=== PATIENT | male | born 1950 | race Caucasian/White ===

== ENCOUNTER → 2022-12-05 | Outpatient (CLI) | payer MEDICARE, OTHER ==
[~2022-12-05] MED LIST: ACHD5005 PO; ASP81CT PO; CLC500CT PO; DCS100C PO; FURO40TA4 PO; KCL20TCR PO; LISI-594 PO; METO25TA2 PO; ROSU10TA12 PO; TRM50T PO
== END ==
LOC: CARD 12:46
PROVIDERS: ATTEND Internal Medicine Cardiovascular Disease
DX: I25.10 Atherosclerotic heart disease of native coronary artery without angina pectoris (principal)
CPT/HCPCS: 93306

== ENCOUNTER → 2023-01-02 | Outpatient (CLI) | payer MEDICARE, OTHER ==
[~2023-01-02] MED LIST changes: +CATHETER FLUSH 10 ML SYR IVP PRN; +REGADENOSON 0.4 MG/5 ML SYR (LEXISCAN) IV ONE
[2023-01-02 09:23] VITALS: BP 154/82
--- NOTE | 2023-01-03 12:08 | STRESS TEST ---
DATE OF SERVICE: 01/02/2023 RESTING AND POST REGADENOSON TECHNETIUM-99M TETROFOSMIN SPECT CT IMAGING: CLINICAL DIAGNOSIS: Coronary artery disease. ORDERING PHYSICIAN: Dr. Mendez. Baseline images were carried out after injection of 10.63 mCi of technetium-99m tetrofosmin. This was followed by 0.4 mg regadenoson and 32.8 mCi of technetium-99m tetrofosmin for stress imaging. The electrocardiogram showed sinus rhythm at baseline. It did not change significantly with regadenoson infusion. The patient tolerated the procedure well. Review of images at rest and following stress does not indicate any distinct perfusion defects consistent with significant myocardial ischemia or infarction. Some degree of apical thinning is seen both at rest and following regadenoson infusion. Gated images show normal global left ventricular systolic function with normal regional wall motion. Left ventricular ejection fraction is calculated to be 59%. Left ventricular end-diastolic volume 88 mL, TID is absent (1.05). CONCLUSIONS: 1. No evidence of significant myocardial ischemia or infarction on study. 2. Normal regional wall motion. 3. Normal global left ventricular systolic function with a calculated ejection fraction of 59%. Job ID: [id number] DocumentID: [id number] Dictated Date: 01/03/2023 10:06:41 [employer] Date: 01/03/2023 12:06:00 Dictated By: PERFECTO MENDEZ MD; SANJANA; FACP; FACC;
== END ==
LOC: CARD 07:15
PROVIDERS: ATTEND Internal Medicine Cardiovascular Disease
DX: I25.10 Atherosclerotic heart disease of native coronary artery without angina pectoris (principal)
CPT/HCPCS: 78452; 93017; A9502